=== PATIENT | male | born 1955 | race African-American/Black ===

== ENCOUNTER 2018-01-03 13:10 | Emergency (ER) | payer MEDICAID ==
[~2018-01-03] VITALS: Ht 185.4 cm; Wt 78.0 kg
[~2018-01-03 13:10] MED LIST: OLAN20TA29 PO
[2018-01-03 13:22] VITALS: BP 101/68
[2018-01-06] MEDS ORDERED: CODE473S5 PO (22:56)
[2018-01-06] MEDS ORDERED: ALPR2TAB2 PO (22:56)
== END 2018-01-03 19:50 | disposition left against medical advice (07) ==
LOC: ER 13:10
DX: Z53.21 Procedure and treatment not carried out due to patient leaving prior to being seen by health care provider (principal)
CPT/HCPCS: 93005

== ENCOUNTER 2018-07-16 01:30 | Inpatient (IN) | payer MEDICARE, MEDICAID ==
[~2018-07-16] VITALS: Ht 185.4 cm; Wt 63.5 kg
[~2018-07-16 01:30] MED LIST changes: +ALPR2TAB2 PO; +CODE473S5 PO
[2018-07-16] MEDS ORDERED: NITROGLYCERIN 0.4MG TABLET SL SL PRN (04:00)
[2018-07-16] MEDS ORDERED: LORAZEPAM 2MG/ML CPJ IV ONE (04:00)
[2018-07-16] MEDS ORDERED: ASPIRIN 81MG TABLET PO ONE (04:00)
[2018-07-16 04:29] LABS: BASOPHILS % 0.9 % (0.0-2.0); EOSINOPHILS % 5.7 % (0.0-5.0); HEMATOCRIT. 35.8 % (42.0-52.0); HEMOGLOBIN. 11.8 g/dL (14.0-18.0); LYMPHOCYTES % 33.9 % (20.0-50.0); MEAN CORPUSCULAR HEMOGLOBIN 29.2 pg (28.0-32.0); MEAN CORPUSCULAR VOLUME 88.5 fL (80.0-94.0); MEAN PLATELET VOLUME 8.3 fl (7.4-10.4); NEUTROPHILS % 51.5 % (40.0-76.0); PLATELET 203 x1000/uL (130-400); RED BLOOD CELL COUNT 4.05 mill/uL (4.7-6.1); RED CELL DISTRIBUTION WIDTH 14.4 % (11.6-14.6)
[2018-07-16 04:32] LABS: CHLORIDE 105 mEq/L (98-107)
[2018-07-16 04:44] LABS: D-DIMER < 0.19 mg/L FEU (<0.50); INR 1.1; PARTIAL THROMBOPLASTIN TIME 32.7 sec (23.4-31.0); PROTHROMBIN TIME 10.9 sec (9.6-11.0)
[2018-07-16] MEDS ORDERED: DOCUSATE SODIUM 100MG CAPSULE PO PRN (07:15)
[2018-07-16] MEDS ORDERED: IPRATROPIUM/ALBUTEROL 0.5-3(2.5)MG/3ML NEB INH PRN (07:15)
[2018-07-16] MEDS ORDERED: HYDROMORPHONE HCL/PF 2MG/ML CPJ IV PRN (07:15)
[2018-07-16] MEDS ORDERED: HYDRALAZINE 20MG/ML VIAL IV PRN (07:15)
[2018-07-16] MEDS ORDERED: DIPHENHYDRAMINE 50MG/ML VIAL IV PRN (07:15)
[2018-07-16] MEDS ORDERED: LORAZEPAM 2MG/ML CPJ IV PRN (07:15)
[2018-07-16] MEDS ORDERED: ONDANSETRON HCL 4MG/2ML INJ IV PRN (07:15)
[2018-07-16] MEDS ORDERED: NA PHOS,M-B/NA PHOS,DI-BA ENEMA 118ML PR PRN (07:15)
[2018-07-16] MEDS ORDERED: MAGNESIUM/ALUMINUM HYDROXIDE/SIMETHICONE 30ML UDC PO PRN (07:15)
[2018-07-16] MEDS ORDERED: CLONIDINE 0.1MG TABLET PO PRN (07:15)
[2018-07-16] MEDS ORDERED: GUAIFENESIN 200MG/10ML SUGAR FREE UDC PO PRN (07:15)
[2018-07-16] MEDS: HYDROCODONE/ACETAMINOPHEN 10/325MG TABLET PO PRN ×2 (08:00→23:06)
[2018-07-16 10:35] VITALS: BP 105/68
[2018-07-16] MEDS ORDERED: TYLENOL (10:49)
[2018-07-16] MEDS: ENOXAPARIN 40MG/0.4ML SYR SUBCUT SCH (11:50)
[2018-07-16] MEDS: ACETAMINOPHEN 325MG TABLET PO PRN (11:50)
[2018-07-16] MEDS: SODIUM CHLORIDE 0.9% INJ 3ML FLUSH IVF SCH ×2 (14:00→21:35)
[2018-07-16 16:00] VITALS: BP 99/57
[2018-07-16 17:35] LABS: CREATINE KINASE 246 IU/L (39-308)
[2018-07-16 17:36] LABS: CREATINE KINASE MB FRACTION 3.5 ng/mL (0.5-3.6)
[2018-07-16 20:00] VITALS: BP 113/63
[2018-07-16] MEDS ORDERED: LEVOFLOXACIN 500MG PREMIX 100 ML IV SCH (21:00)
[2018-07-16] MEDS: IPRATROPIUM/ALBUTEROL 0.5-3(2.5)MG/3ML NEB HHN SCH (21:28)
[2018-07-16] MEDS ORDERED: IPRATROPIUM/ALBUTEROL 0.5-3(2.5)MG/3ML NEB HHN PRN (23:50)
[2018-07-17] VITALS: BP 119/87
[2018-07-17 00:49] LABS: CREATINE KINASE 228 IU/L (39-308)
[2018-07-17 00:50] LABS: CREATINE KINASE MB FRACTION 3.5 ng/mL (0.5-3.6)
[2018-07-17 00:55] LABS: PROSTRATE SPECIFIC AG TOTAL 0.89 ng/mL (0.0-4.0)
[2018-07-17 04:00] VITALS: BP 111/70
[2018-07-17] MEDS: SODIUM CHLORIDE 0.9% INJ 3ML FLUSH IVF SCH ×2 (05:57→13:12)
[2018-07-17 06:26] LABS: EOSINOPHILS % 10.9 % (0.0-5.0); HEMATOCRIT. 36.6 % (42.0-52.0); HEMOGLOBIN. 11.9 g/dL (14.0-18.0); LYMPHOCYTES % 49.7 % (20.0-50.0); MEAN CORPUSCULAR HEMOGLOBIN 28.7 pg (28.0-32.0); MEAN CORPUSCULAR VOLUME 88.5 fL (80.0-94.0); MEAN PLATELET VOLUME 8.5 fl (7.4-10.4); MONOCYTES % 9.6 % (2.0-8.0); NEUTROPHILS % 28.8 % (40.0-76.0); PLATELET 195 x1000/uL (130-400); RED BLOOD CELL COUNT 4.13 mill/uL (4.7-6.1); RED CELL DISTRIBUTION WIDTH 14.3 % (11.6-14.6)
[2018-07-17] MEDS ORDERED: DIATR MEGLU/DIATRIZOATE SOLN 30ML PO SCH (06:30)
[2018-07-17 06:34] LABS: CHLORIDE 108 mEq/L (98-107)
[2018-07-17 06:47] LABS: HDL CHOLESTEROL 53 mg/dL (40-59); T4 FREE 0.98 ng/dL (0.76-1.46)
[2018-07-17 06:50] LABS: LDL CHOLESTEROL 67 mg/dL (5-100)
[2018-07-17 08:00] VITALS: BP 114/78
[2018-07-17] MEDS: IPRATROPIUM/ALBUTEROL 0.5-3(2.5)MG/3ML NEB HHN SCH ×2 (09:00→13:46)
[2018-07-17] MEDS: ENOXAPARIN 40MG/0.4ML SYR SUBCUT SCH (10:16)
[2018-07-17 12:00] VITALS: BP 111/70
[2018-07-17] MEDS: ACETAMINOPHEN 325MG TABLET PO PRN (13:18)
[2018-07-17 14:56] VITALS: BP 111/70
[2018-07-18] MEDS ORDERED: LEVOFLOXACIN 500MG TABLET PO SCH (21:00)
== END 2018-07-17 16:15 | disposition home or self-care (01) | DRG 203 ==
LOC: ER 01:30 → ENRESERV 09:46 → 8WST 10:51
PROVIDERS: ADMIT Internal Medicine; ATTEND Internal Medicine
DX: R07.89 Other chest pain (principal); J44.0 Chronic obstructive pulmonary disease with (acute) lower respiratory infection; E78.5 Hyperlipidemia, unspecified; F17.210 Nicotine dependence, cigarettes, uncomplicated; I10 Essential (primary) hypertension; J20.9 Acute bronchitis, unspecified; M19.90 Unspecified osteoarthritis, unspecified site; F14.90 Cocaine use, unspecified, uncomplicated; Z79.899 Other long term (current) drug therapy; Z88.0 Allergy status to penicillin; Z88.1 Allergy status to other antibiotic agents
CPT/HCPCS: 36415; 71045; 71250; 74176; 80061; 82378; 82550; 82553; 83880; 84153; 84439; 84443; 84484; 85379; 86301; 93005; 93970; 94640; 99285; J1650; J1956; J2060; J7620; Q9963; G0103

== ENCOUNTER 2018-12-13 10:08 | Inpatient (IN) | payer MEDICARE, MEDICAID ==
[~2018-12-13] VITALS: Ht 185.4 cm; Wt 65.8 kg
[~2018-12-13 10:08] MED LIST changes: +TYLENOL
[2018-12-13] MEDS: PIPERACILLIN/TAZ 3.375G PREMIX 50 ML IV ONE ×2 (10:35→10:56)
[2018-12-13] MEDS ORDERED: ACETAMINOPHEN 325MG TABLET PO STA (10:35)
[2018-12-13] MEDS ORDERED: SODIUM CHLORIDE 0.9% 1000ML BAG (SEPSIS BOLUS) IV ONE (10:45)
[2018-12-13] MEDS ORDERED: VANCOMYCIN 1 G PREMIX 200 ML IV ONE (10:45)
[2018-12-13] MEDS ORDERED: AZITHROMYCIN 500 MG in DEXT 5% WATER 250 ML IV ONE (10:45)
[2018-12-13 10:58] LABS: HEMATOCRIT. 39.5 % (42.0-52.0); MEAN CORPUSCULAR HEMOGLOBIN 28.4 pg (28.0-32.0); MEAN CORPUSCULAR VOLUME 86.2 fL (80.0-94.0); MEAN PLATELET VOLUME 8.3 fl (7.4-10.4); PLATELET 160 x1000/uL (130-400); RED BLOOD CELL COUNT 4.58 mill/uL (4.7-6.1); RED CELL DISTRIBUTION WIDTH 14.3 % (11.6-14.6)
[2018-12-13 11:01] LABS: CHLORIDE 99 mEq/L (98-107); INR 1.1; PROTHROMBIN TIME 11.3 sec (9.6-11.0)
[2018-12-13 11:17] LABS: PLATELET ESTIMATE NORMAL
[2018-12-13 11:59] LABS: CLARITY URINE CLEAR (CLEAR); COLOR URINE YELLOW (YELLOW); KETONES URINE NEGATIVE (NEGATIVE); LEUKOCYTE ESTERASE URINE NEGATIVE (NEGATIVE); NITRITE URINE NEGATIVE (NEGATIVE); OCCULT BLOOD URINE TRACE (NEGATIVE); PH URINE 5.5 (4.5-8.0); PROTEIN URINE TRACE (NEGATIVE); SPECIFIC GRAVITY URINE 1.011 (1.005-1.030)
[2018-12-13] MEDS ORDERED: IOHEXOL-350 100 ML BOTTLE ONE (14:47)
[2018-12-13 15:27] VITALS: BP 129/77
[2018-12-13 16:00] VITALS: BP 129/77
[2018-12-13] MEDS ORDERED: IPRATROPIUM/ALBUTEROL 0.5-3(2.5)MG/3ML NEB HHN PRN (17:45)
[2018-12-13] MEDS ORDERED: ONDANSETRON HCL 4MG/2ML INJ IV PRN (17:45)
[2018-12-13 18:00] VITALS: BP 118/66
[2018-12-13] MEDS: ACETAMINOPHEN 325MG TABLET PO PRN (18:15)
[2018-12-13 20:00] VITALS: BP 104/68
[2018-12-13] MEDS ORDERED: CEFTRIAXONE 1 G PREMIX 50 ML IV SCH (20:00)
[2018-12-13] MEDS ORDERED: LEVOFLOXACIN 500MG PREMIX 100 ML IV SCH (20:00)
[2018-12-13 22:00] VITALS: BP 105/65
[2018-12-14] VITALS (12 sets, daily range): BP systolic 100–137; BP diastolic 37–79
[2018-12-14] MEDS ORDERED: MIRT15TA MT (05:04)
[2018-12-14] MEDS: OMEPRAZOLE 20MG CAPSULE EXTENDED RELEASE PO SCH (08:15)
[2018-12-14] MEDS ORDERED: PNEUMOCOCCAL 23-VAL P-SAC VAC 0.5 ML IM ONE (09:00)
[2018-12-14] MEDS ORDERED: AZITHROMYCIN 500 MG in DEXT 5% WATER 250 ML IV SCH (09:00)
[2018-12-14] MEDS ORDERED: INFLUENZA VIRUS VACCINE(AFLURIA) 0.5ML SYR IM ONE (09:00)
[2018-12-14] MEDS: SODIUM CHLORIDE 0.9% 1,000 ML IV SCH ×2 (10:59→21:01)
[2018-12-14] MEDS: OLANZAPINE 10MG TABLET PO SCH (11:05)
[2018-12-14 11:29] LABS: HEMATOCRIT. 38.8 % (42.0-52.0); HEMOGLOBIN. 12.9 g/dL (14.0-18.0); MEAN CORPUSCULAR VOLUME 87.2 fL (80.0-94.0); MEAN PLATELET VOLUME 8.5 fl (7.4-10.4); PLATELET 151 x1000/uL (130-400); RED BLOOD CELL COUNT 4.45 mill/uL (4.7-6.1); RED CELL DISTRIBUTION WIDTH 14.7 % (11.6-14.6)
[2018-12-14 11:55] LABS: CHLORIDE 107 mEq/L (98-107)
[2018-12-14 13:20] LABS: PLATELET ESTIMATE NORMAL
[2018-12-14 13:58] LABS: *AMPHETAMINES SCREEN URINE NEGATIVE (NEGATIVE); *BARBITURATES SCREEN URINE NEGATIVE (NEGATIVE); *BENZODIAZEPINES SCREEN URINE NEGATIVE (NEGATIVE); *COCAINE SCREEN URINE PRESUMTIVE POSITIVE (NEGATIVE); METHADONE URINE SCREEN NEGATIVE (NEGATIVE); OPIATES URINE SCREEN NEGATIVE (NEGATIVE)
[2018-12-14 13:59] LABS: CANNABINOID URINE SCREEN NEGATIVE (NEGATIVE); PHENCYCLIDINE URINE SCREEN NEGATIVE (NEGATIVE)
[2018-12-14 14:07] LABS: SODIUM URINE RANDOM 139 mEq/L
[2018-12-14] MEDS: GUAIFENESIN/CODEINE 200-20MG/10ML UDC PO PRN (18:22)
[2018-12-14] MEDS: LEVOFLOXACIN 250MG PREMIX 50 ML IV SCH (21:00)
[2018-12-14] MEDS: MIRTAZAPINE 15MG TABLET PO SCH (21:00)
[2018-12-15] VITALS (10 sets, daily range): BP systolic 94–124; BP diastolic 54–70
[2018-12-15 07:14] LABS: BASOPHILS % 0.5 % (0.0-2.0); EOSINOPHILS % 1.3 % (0.0-5.0); HEMATOCRIT. 38.6 % (42.0-52.0); HEMOGLOBIN. 12.8 g/dL (14.0-18.0); LYMPHOCYTES % 28.3 % (20.0-50.0); MEAN CORPUSCULAR HEMOGLOBIN 28.8 pg (28.0-32.0); MEAN CORPUSCULAR VOLUME 86.8 fL (80.0-94.0); MEAN PLATELET VOLUME 8.9 fl (7.4-10.4); MONOCYTES % 12.4 % (2.0-8.0); NEUTROPHILS % 57.5 % (40.0-76.0); PLATELET 168 x1000/uL (130-400); RED BLOOD CELL COUNT 4.44 mill/uL (4.7-6.1); RED CELL DISTRIBUTION WIDTH 14.6 % (11.6-14.6)
[2018-12-15 07:52] LABS: CHLORIDE 106 mEq/L (98-107)
[2018-12-15 08:00] LABS: PHOSPHORUS 2.3 mg/dL (2.5-4.9)
[2018-12-15] MEDS: OMEPRAZOLE 20MG CAPSULE EXTENDED RELEASE PO SCH (08:05)
[2018-12-15] MEDS: OLANZAPINE 10MG TABLET PO SCH (08:05)
[2018-12-15 08:07] LABS: CREATINE KINASE 300 IU/L (39-308)
[2018-12-15] MEDS: SODIUM CHLORIDE 0.9% 1,000 ML IV SCH (08:11)
[2018-12-15] MEDS ORDERED: SODIUM PHOS,M-BASIC-D-BASIC 15 MM in DEXT 5% WATER 245 ML IV NR (12:00)
[2018-12-15] MEDS: MIRTAZAPINE 15MG TABLET PO SCH (21:33)
[2018-12-15] MEDS: LEVOFLOXACIN 250MG PREMIX 50 ML IV SCH (21:33)
[2018-12-16] VITALS (12 sets, daily range): BP systolic 93–119; BP diastolic 31–71
[2018-12-16] MEDS: SODIUM CHLORIDE 0.9% 1,000 ML IV SCH (01:38)
[2018-12-16] MEDS: OMEPRAZOLE 20MG CAPSULE EXTENDED RELEASE PO SCH (06:34)
[2018-12-16] MEDS: OLANZAPINE 10MG TABLET PO SCH (08:39)
[2018-12-16] MEDS: HYDROCODONE/ACETAMINOPHEN 5/325MG TABLET PO PRN ×2 (08:40→20:07)
[2018-12-16] MEDS: ENOXAPARIN 40MG/0.4ML SYR SUBCUT SCH (14:45)
[2018-12-16 15:04] LABS: BG BASE EXCESS 2.3 mmol/L (-2.0-2.0); BG CARBOXYHEMOGLOBIN 0.6 % (0.5-1.5); BG DEOXYHEMOGLOBIN 5.6 % (0.0-5.0); BG FRACTION INSPIRED OXYGEN 21; BG HCO3 ACT 26.4 mmol/L (22.0-26.0); BG METHEMOGLOBIN 0.2 % (0.0-1.5); BG OXYGEN SATURATION 94.4 % (92.0-98.5); BG OXYHEMOGLOBIN 93.6 % (94.0-97.0); BG PCO2 39.1 mmHg (35.0-45.0); BG PH 7.447 (7.350-7.450); BG SAMPLE SITE RIGHT BRACHIAL; BG TOTAL HEMOGLOBIN 13.8 g/dL (12.0-18.0); BG VENT MODE ROOM AIR
[2018-12-16] MEDS: MIRTAZAPINE 15MG TABLET PO SCH (20:06)
[2018-12-16] MEDS: LEVOFLOXACIN 250MG PREMIX 50 ML IV SCH (20:06)
[2018-12-17] VITALS (12 sets, daily range): BP systolic 103–144; BP diastolic 64–78
[2018-12-17 06:28] LABS: BASOPHILS % 0.4 % (0.0-2.0); CHLORIDE 104 mEq/L (98-107); EOSINOPHILS % 3.8 % (0.0-5.0); HEMATOCRIT. 38.6 % (42.0-52.0); HEMOGLOBIN. 12.8 g/dL (14.0-18.0); LYMPHOCYTES % 33.8 % (20.0-50.0); MEAN CORPUSCULAR HEMOGLOBIN 28.8 pg (28.0-32.0); MEAN CORPUSCULAR VOLUME 86.8 fL (80.0-94.0); MEAN PLATELET VOLUME 8.6 fl (7.4-10.4); MONOCYTES % 12.3 % (2.0-8.0); NEUTROPHILS % 49.7 % (40.0-76.0); PLATELET 188 x1000/uL (130-400); RED BLOOD CELL COUNT 4.44 mill/uL (4.7-6.1); RED CELL DISTRIBUTION WIDTH 14.5 % (11.6-14.6)
[2018-12-17] MEDS: HYDROCODONE/ACETAMINOPHEN 5/325MG TABLET PO PRN ×2 (06:31→21:18)
[2018-12-17 06:35] LABS: PHOSPHORUS 2.8 mg/dL (2.5-4.9)
[2018-12-17 08:10] LABS: HIV SCREEN 4G Non Reactive (Non Reactive)
[2018-12-17] MEDS: ENOXAPARIN 40MG/0.4ML SYR SUBCUT SCH (08:56)
[2018-12-17] MEDS: FAMOTIDINE 20MG TABLET PO SCH ×2 (08:56→21:18)
[2018-12-17] MEDS: OLANZAPINE 10MG TABLET PO SCH (08:56)
[2018-12-17] MEDS ORDERED: MAGNESIUM 2 G PREMIX 50 ML IV NR (13:30)
[2018-12-17] MEDS: MIRTAZAPINE 15MG TABLET PO SCH (21:18)
[2018-12-17] MEDS: LEVOFLOXACIN 250MG PREMIX 50 ML IV SCH (21:25)
[2018-12-18] VITALS (12 sets, daily range): BP systolic 99–135; BP diastolic 54–80
[2018-12-18 07:22] LABS: BASOPHILS % 0.5 % (0.0-2.0); EOSINOPHILS % 3.9 % (0.0-5.0); HEMATOCRIT. 39.4 % (42.0-52.0); HEMOGLOBIN. 12.9 g/dL (14.0-18.0); MEAN CORPUSCULAR HEMOGLOBIN 28.3 pg (28.0-32.0); MEAN CORPUSCULAR VOLUME 86.6 fL (80.0-94.0); MEAN PLATELET VOLUME 8.8 fl (7.4-10.4); MONOCYTES % 12.6 % (2.0-8.0); PLATELET 196 x1000/uL (130-400); RED BLOOD CELL COUNT 4.55 mill/uL (4.7-6.1); RED CELL DISTRIBUTION WIDTH 14.2 % (11.6-14.6)
[2018-12-18 07:33] LABS: CHLORIDE 104 mEq/L (98-107)
[2018-12-18 07:45] LABS: PHOSPHORUS 2.6 mg/dL (2.5-4.9)
[2018-12-18] MEDS: ENOXAPARIN 40MG/0.4ML SYR SUBCUT SCH (09:00)
[2018-12-18] MEDS: OLANZAPINE 10MG TABLET PO SCH (10:18)
[2018-12-18] MEDS: HYDROCODONE/ACETAMINOPHEN 5/325MG TABLET PO PRN ×2 (10:19→22:03)
[2018-12-18] MEDS: FAMOTIDINE 20MG TABLET PO SCH ×2 (10:19→21:25)
[2018-12-18] MEDS: MIRTAZAPINE 15MG TABLET PO SCH (21:25)
[2018-12-18] MEDS ORDERED: ZOLPIDEM TARTRATE 5MG TABLET PO PRN (21:45)
[2018-12-19] VITALS (16 sets, daily range): BP systolic 98–139; BP diastolic 28–96
[2018-12-19 07:27] LABS: BASOPHILS % 0.4 % (0.0-2.0); EOSINOPHILS % 3.3 % (0.0-5.0); HEMATOCRIT. 40.1 % (42.0-52.0); HEMOGLOBIN. 13.1 g/dL (14.0-18.0); LYMPHOCYTES % 18.7 % (20.0-50.0); MEAN CORPUSCULAR HEMOGLOBIN 28.6 pg (28.0-32.0); MEAN CORPUSCULAR VOLUME 87.4 fL (80.0-94.0); MEAN PLATELET VOLUME 8.8 fl (7.4-10.4); MONOCYTES % 9.3 % (2.0-8.0); NEUTROPHILS % 68.3 % (40.0-76.0); PLATELET 222 x1000/uL (130-400); RED BLOOD CELL COUNT 4.59 mill/uL (4.7-6.1); RED CELL DISTRIBUTION WIDTH 14.1 % (11.6-14.6)
[2018-12-19 07:42] LABS: CHLORIDE 102 mEq/L (98-107)
[2018-12-19 07:49] LABS: PHOSPHORUS 2.6 mg/dL (2.5-4.9)
[2018-12-19] MEDS: FAMOTIDINE 20MG TABLET PO SCH ×2 (09:14→21:49)
[2018-12-19] MEDS: HYDROCODONE/ACETAMINOPHEN 5/325MG TABLET PO PRN ×2 (09:14→17:03)
[2018-12-19] MEDS: OLANZAPINE 10MG TABLET PO SCH (09:14)
[2018-12-19] MEDS: ENOXAPARIN 40MG/0.4ML SYR SUBCUT SCH (09:15)
[2018-12-19] MEDS: GUAIFENESIN/CODEINE 200-20MG/10ML UDC PO PRN (20:10)
[2018-12-19] MEDS: ACETAMINOPHEN 325MG TABLET PO PRN (20:10)
[2018-12-19] MEDS: MIRTAZAPINE 15MG TABLET PO SCH (21:49)
[2018-12-20] VITALS (9 sets, daily range): BP systolic 90–132; BP diastolic 45–71
[2018-12-20] MEDS: HYDROCODONE/ACETAMINOPHEN 5/325MG TABLET PO PRN ×2 (07:01→13:04)
[2018-12-20] MEDS: ENOXAPARIN 40MG/0.4ML SYR SUBCUT SCH (09:00)
[2018-12-20] MEDS: OLANZAPINE 10MG TABLET PO SCH (09:16)
[2018-12-20] MEDS: FAMOTIDINE 20MG TABLET PO SCH (09:16)
[2018-12-20 13:45] LABS: HEMATOCRIT. 37.4 % (42.0-52.0); HEMOGLOBIN. 12.3 g/dL (14.0-18.0); MEAN CORPUSCULAR HEMOGLOBIN 28.5 pg (28.0-32.0); MEAN CORPUSCULAR VOLUME 86.7 fL (80.0-94.0); MEAN PLATELET VOLUME 8.6 fl (7.4-10.4); PLATELET 280 x1000/uL (130-400); RED BLOOD CELL COUNT 4.32 mill/uL (4.7-6.1); RED CELL DISTRIBUTION WIDTH 14.1 % (11.6-14.6)
[2018-12-20 14:08] LABS: PLATELET ESTIMATE NORMAL
[2018-12-20 14:11] LABS: CHLORIDE 103 mEq/L (98-107)
[2018-12-20 14:17] LABS: PHOSPHORUS 2.6 mg/dL (2.5-4.9)
== END 2018-12-20 19:00 | DRG 720 ==
LOC: ER 10:41 → 5EST 13:11 → EDBEDREQ 13:22 → ENRESERV 14:30
PROVIDERS: ADMIT Internal Medicine; ATTEND Internal Medicine
DX: A41.9 Sepsis, unspecified organism (principal); N17.9 Acute kidney failure, unspecified; E87.2 Acidosis; J18.1 Lobar pneumonia, unspecified organism; E83.39 Other disorders of phosphorus metabolism; E87.1 Hypo-osmolality and hyponatremia; N39.0 Urinary tract infection, site not specified; I10 Essential (primary) hypertension; J44.0 Chronic obstructive pulmonary disease with (acute) lower respiratory infection; E78.5 Hyperlipidemia, unspecified; E78.00 Pure hypercholesterolemia, unspecified; F14.10 Cocaine abuse, uncomplicated; F17.200 Nicotine dependence, unspecified, uncomplicated; G89.29 Other chronic pain; J44.1 Chronic obstructive pulmonary disease with (acute) exacerbation; M19.90 Unspecified osteoarthritis, unspecified site; R65.20 Severe sepsis without septic shock; R26.9 Unspecified abnormalities of gait and mobility; R53.81 Other malaise; E83.42 Hypomagnesemia; Z59.0 Homelessness; Z82.49 Family history of ischemic heart disease and other diseases of the circulatory system; Z88.0 Allergy status to penicillin; Z88.9 Allergy status to unspecified drugs, medicaments and biological substances
CPT/HCPCS: 36415; 36600; 71045; 71046; 71275; 80048; 80305; 81003; 82375; 82533; 82550; 82805; 83605; 83735; 83880; 83935; 84100; 84145; 84300; 84443; 84484; 87389; 87804; 90686; 90732; 93005; 97162; 97165; 99285; J0456; J1650; J1956; J2543; J3370; J3475; J3490; J7030; J7060; Q9967

== ENCOUNTER 2018-12-22 23:13 | Emergency (ER) | payer MEDICARE, OTHER ==
[~2018-12-22] VITALS: Ht 185.4 cm; Wt 65.0 kg
[~2018-12-22 23:13] MED LIST changes: +MIRT15TA MT
[2018-12-23 00:59] VITALS: BP 108/77
== END 2018-12-23 01:00 | disposition home or self-care (01) ==
LOC: ER 23:32
DX: R68.89 Other general symptoms and signs (principal); F17.200 Nicotine dependence, unspecified, uncomplicated; J45.909 Unspecified asthma, uncomplicated; J44.9 Chronic obstructive pulmonary disease, unspecified; Z98.890 Other specified postprocedural states; Z88.0 Allergy status to penicillin; Z79.899 Other long term (current) drug therapy; Z88.6 Allergy status to analgesic agent
CPT/HCPCS: 99281

== ENCOUNTER 2019-02-23 02:50 | Emergency (ER) | payer MEDICARE, OTHER ==
[~2019-02-23] VITALS: Ht 180.3 cm; Wt 81.0 kg
[2019-02-23 02:56] VITALS: BP 126/60
[2019-02-23] MEDS ORDERED: HYDROCODONE/ACETAMINOPHEN 5/325MG TABLET PO ONE (07:15)
== END 2019-02-23 10:05 | disposition home or self-care (01) ==
LOC: ER 02:50
DX: J44.9 Chronic obstructive pulmonary disease, unspecified (principal); J98.11 Atelectasis; F17.290 Nicotine dependence, other tobacco product, uncomplicated; I10 Essential (primary) hypertension; F20.9 Schizophrenia, unspecified; Z79.899 Other long term (current) drug therapy; Z88.0 Allergy status to penicillin; Z88.6 Allergy status to analgesic agent
CPT/HCPCS: 71045; 73130; 73560; 99283

== ENCOUNTER 2019-03-10 23:36 | Inpatient (IN) | payer MEDICARE, MEDICAID ==
[~2019-03-10] VITALS: Ht 185.4 cm; Wt 60.3 kg
[2019-03-11] MEDS ORDERED: METHYLPREDNISOLONE SOD SUCC 125 MG/2 ML VIAL IV STA (00:29)
[2019-03-11] MEDS ORDERED: MORPHINE SULFATE 4 MG/ML CPJ (NOT FOR IM USE) IV STA (00:29)
[2019-03-11] MEDS ORDERED: ONDANSETRON HCL 4MG/2ML INJ IV STA (00:29)
[2019-03-11] MEDS ORDERED: LEVOFLOXACIN 750MG PREMIX 150 ML IV ONE (00:30)
[2019-03-11] MEDS ORDERED: ASPIRIN 81MG TABLET PO ONE (00:30)
[2019-03-11] MEDS ORDERED: IPRATROPIUM/ALBUTEROL 0.5-3(2.5)MG/3ML NEB HHN ONE (00:30)
[2019-03-11 00:46] LABS: BASOPHILS % 0.5 % (0.0-2.0); EOSINOPHILS % 6.2 % (0.0-5.0); HEMATOCRIT. 37.8 % (42.0-52.0); HEMOGLOBIN. 12.4 g/dL (14.0-18.0); MEAN CORPUSCULAR HEMOGLOBIN 28.6 pg (28.0-32.0); MEAN CORPUSCULAR VOLUME 86.8 fL (80.0-94.0); MEAN PLATELET VOLUME 7.2 fl (7.4-10.4); NEUTROPHILS % 48.3 % (40.0-76.0); PLATELET 379 x1000/uL (130-400); RED BLOOD CELL COUNT 4.35 mill/uL (4.7-6.1); RED CELL DISTRIBUTION WIDTH 14.2 % (11.6-14.6)
[2019-03-11 00:55] LABS: CHLORIDE 104 mEq/L (98-107)
[2019-03-11 00:56] LABS: PARTIAL THROMBOPLASTIN TIME 35.2 sec (23.4-31.0); PROTHROMBIN TIME 10.2 sec (9.6-11.0)
[2019-03-11 00:59] LABS: ETHANOL BLOOD < 10 mg/dL
[2019-03-11 01:30] LABS: CLARITY URINE CLEAR (CLEAR); COLOR URINE YELLOW (YELLOW); KETONES URINE NEGATIVE (NEGATIVE); LEUKOCYTE ESTERASE URINE NEGATIVE (NEGATIVE); NITRITE URINE NEGATIVE (NEGATIVE); OCCULT BLOOD URINE NEGATIVE (NEGATIVE); PH URINE 6.5 (4.5-8.0); PROTEIN URINE NEGATIVE (NEGATIVE); SPECIFIC GRAVITY URINE 1.016 (1.005-1.030)
[2019-03-11 01:40] LABS: *AMPHETAMINES SCREEN URINE NEGATIVE (NEGATIVE); *BARBITURATES SCREEN URINE NEGATIVE (NEGATIVE); *BENZODIAZEPINES SCREEN URINE NEGATIVE (NEGATIVE); *COCAINE SCREEN URINE PRESUMTIVE POSITIVE (NEGATIVE)
[2019-03-11 01:41] LABS: CANNABINOID URINE SCREEN NEGATIVE (NEGATIVE); METHADONE URINE SCREEN NEGATIVE (NEGATIVE); PHENCYCLIDINE URINE SCREEN NEGATIVE (NEGATIVE)
[2019-03-11 01:42] LABS: OPIATES URINE SCREEN NEGATIVE (NEGATIVE)
[2019-03-11] MEDS ORDERED: MORPHINE SULFATE 2 MG/ML CPJ (NOT FOR IM USE) IV ONE (14:00)
[2019-03-11 18:30] VITALS: BP 100/63
[2019-03-11 18:45] VITALS: BP 100/63
[2019-03-11 21:16] VITALS: BP 96/70
[2019-03-11] MEDS ORDERED: ACETAMINOPHEN 650MG/20.3ML UDC PO PRN (21:45)
[2019-03-11] MEDS ORDERED: ONDANSETRON HCL 4MG/2ML INJ IV PRN (21:45)
[2019-03-11] MEDS: METHYLPREDNISOLONE SOD SUCC 40 MG/ML VIAL IV SCH (23:14)
[2019-03-12] VITALS: BP 102/64
[2019-03-12] MEDS: IPRATROPIUM/ALBUTEROL 0.5-3(2.5)MG/3ML NEB HHN SCH ×6 (00:50→20:53)
[2019-03-12] MEDS: LEVOFLOXACIN 500MG PREMIX 100 ML IV SCH (01:02)
[2019-03-12] MEDS: HYDROCODONE/ACETAMINOPHEN 5/325MG TABLET PO PRN ×3 (01:13→15:25)
[2019-03-12 04:00] VITALS: BP 106/71
[2019-03-12] MEDS: METHYLPREDNISOLONE SOD SUCC 40 MG/ML VIAL IV SCH ×3 (06:45→21:06)
[2019-03-12 06:48] LABS: BASOPHILS % 0.2 % (0.0-2.0); HEMATOCRIT. 35.1 % (42.0-52.0); HEMOGLOBIN. 11.9 g/dL (14.0-18.0); LYMPHOCYTES % 17.2 % (20.0-50.0); MEAN CORPUSCULAR HEMOGLOBIN 29.4 pg (28.0-32.0); MEAN CORPUSCULAR VOLUME 86.9 fL (80.0-94.0); MEAN PLATELET VOLUME 7.6 fl (7.4-10.4); MONOCYTES % 2.8 % (2.0-8.0); NEUTROPHILS % 79.8 % (40.0-76.0); PLATELET 356 x1000/uL (130-400); RED BLOOD CELL COUNT 4.04 mill/uL (4.7-6.1); RED CELL DISTRIBUTION WIDTH 14.2 % (11.6-14.6)
[2019-03-12 07:04] LABS: CHLORIDE 105 mEq/L (98-107)
[2019-03-12 07:13] LABS: CREATINE KINASE 62 IU/L (39-308)
[2019-03-12 07:14] LABS: CREATINE KINASE MB FRACTION 1.8 ng/mL (0.5-3.6)
[2019-03-12 08:00] VITALS: BP 110/73
[2019-03-12] MEDS: ASPIRIN 81MG EC TABLET PO SCH (09:16)
[2019-03-12] MEDS: ENOXAPARIN 40MG/0.4ML SYR SUBCUT SCH (09:17)
[2019-03-12 12:00] VITALS: BP 103/64
[2019-03-12 16:00] VITALS: BP 107/70
[2019-03-12 20:00] VITALS: BP 105/67
[2019-03-12] MEDS: MORPHINE SULFATE 2 MG/ML CPJ (NOT FOR IM USE) IV PRN (20:15)
[2019-03-13] VITALS: BP 98/66
[2019-03-13] MEDS: LEVOFLOXACIN 500MG PREMIX 100 ML IV SCH (01:21)
[2019-03-13 04:00] VITALS: BP 105/72
[2019-03-13] MEDS: IPRATROPIUM/ALBUTEROL 0.5-3(2.5)MG/3ML NEB HHN SCH ×4 (04:00→12:09)
[2019-03-13] MEDS: METHYLPREDNISOLONE SOD SUCC 40 MG/ML VIAL IV SCH ×2 (05:15→13:19)
[2019-03-13] MEDS: MORPHINE SULFATE 2 MG/ML CPJ (NOT FOR IM USE) IV PRN (05:31)
[2019-03-13 08:00] VITALS: BP 106/70
[2019-03-13] MEDS: ASPIRIN 81MG EC TABLET PO SCH (09:52)
[2019-03-13] MEDS: ENOXAPARIN 40MG/0.4ML SYR SUBCUT SCH (09:52)
[2019-03-13] MEDS: HYDROCODONE/ACETAMINOPHEN 5/325MG TABLET PO PRN (13:30)
[2019-03-13 15:02] VITALS: BP 110/65
== END 2019-03-13 15:26 | disposition home health service (06) | DRG 816 ==
LOC: ER 23:36 → 7WST 03-11 02:50 → EDBEDREQ 03-11 02:58 → EDBEDREQTM 03-11 02:58 → ENRESERV 03-11 16:24
PROVIDERS: ADMIT Internal Medicine; ATTEND Internal Medicine
DX: T40.5X1A Poisoning by cocaine, accidental (unintentional), initial encounter (principal); K85.90 Acute pancreatitis without necrosis or infection, unspecified; J44.1 Chronic obstructive pulmonary disease with (acute) exacerbation; F20.9 Schizophrenia, unspecified; M94.0 Chondrocostal junction syndrome [Tietze]; D64.9 Anemia, unspecified; F14.10 Cocaine abuse, uncomplicated; F17.210 Nicotine dependence, cigarettes, uncomplicated; F41.9 Anxiety disorder, unspecified; F31.9 Bipolar disorder, unspecified; I10 Essential (primary) hypertension; R07.81 Pleurodynia; Z59.0 Homelessness; Z87.01 Personal history of pneumonia (recurrent); Z88.0 Allergy status to penicillin; Z88.6 Allergy status to analgesic agent; Z71.51 Drug abuse counseling and surveillance of drug abuser; V19.9XXA Pedal cyclist (driver) (passenger) injured in unspecified traffic accident, initial encounter; Y93.55 Activity, bike riding; Y92.89 Other specified places as the place of occurrence of the external cause; Y99.8 Other external cause status
CPT/HCPCS: 36415; 71045; 76700; 80048; 80053; 80305; 80320; 81003; 82550; 82553; 83605; 83880; 84484; 85025; 93005; 93306; 94640; 97162; 99285; J1650; J1956; J2270; J2405; J2920; J2930; G0480

== ENCOUNTER 2021-01-12 00:55 | Emergency (ER) | payer MEDICARE, OTHER ==
[~2021-01-12] VITALS: Ht 185.4 cm; Wt 75.0 kg
[~2021-01-12 00:55] MED LIST changes: +MIRT-118 MT; -MIRT15TA MT; -TYLENOL
[2021-01-12] MEDS ORDERED: ONDANSETRON HCL 4MG/2ML INJ IV STA (01:37)
[2021-01-12] MEDS ORDERED: MORPHINE SULFATE 4 MG/ML CPJ (NOT FOR IM USE) IV STA (01:37)
[2021-01-12 01:44] LABS: BASOPHILS % 0.4 % (0.0-2.0); EOSINOPHILS % 1.5 % (0.0-5.0); HEMATOCRIT. 37.9 % (42.0-52.0); HEMOGLOBIN. 12.3 g/dL (14.0-18.0); LYMPHOCYTES % 11.5 % (20.0-50.0); MEAN CORPUSCULAR HEMOGLOBIN 28.1 pg (28.0-32.0); MEAN CORPUSCULAR VOLUME 86.2 fL (80.0-94.0); MEAN PLATELET VOLUME 7.9 fl (7.4-10.4); MONOCYTES % 6.8 % (2.0-8.0); NEUTROPHILS % 79.8 % (40.0-76.0); PLATELET 297 x1000/uL (130-400); RED BLOOD CELL COUNT 4.39 mill/uL (4.7-6.1); RED CELL DISTRIBUTION WIDTH 14.7 % (11.6-14.6)
[2021-01-12] MEDS ORDERED: ASPIRIN 81MG TABLET PO ONE (01:45)
[2021-01-12] MEDS ORDERED: NITROGLYCERIN OINT 1GM/INCH UDPKT TD ONE (01:45)
[2021-01-12 01:49] LABS: CHLORIDE 100 mEq/L (98-107)
[2021-01-12 01:54] LABS: ETHANOL BLOOD < 10 mg/dL
[2021-01-12 02:11] LABS: CLARITY URINE CLEAR (CLEAR); COLOR URINE YELLOW (YELLOW); KETONES URINE TRACE (NEGATIVE); LEUKOCYTE ESTERASE URINE NEGATIVE (NEGATIVE); NITRITE URINE NEGATIVE (NEGATIVE); OCCULT BLOOD URINE NEGATIVE (NEGATIVE); PH URINE 5.5 (4.5-8.0); PROTEIN URINE TRACE (NEGATIVE); SPECIFIC GRAVITY URINE 1.029 (1.005-1.030)
[2021-01-12 02:21] LABS: *AMPHETAMINES SCREEN URINE NEGATIVE (NEGATIVE); *BARBITURATES SCREEN URINE NEGATIVE (NEGATIVE); *BENZODIAZEPINES SCREEN URINE NEGATIVE (NEGATIVE); *COCAINE SCREEN URINE PRESUMTIVE POSITIVE (NEGATIVE); CANNABINOID URINE SCREEN NEGATIVE (NEGATIVE); METHADONE URINE SCREEN NEGATIVE (NEGATIVE); OPIATES URINE SCREEN NEGATIVE (NEGATIVE); PHENCYCLIDINE URINE SCREEN NEGATIVE (NEGATIVE)
[2021-01-12 03:00] VITALS: BP 122/76
== END 2021-01-12 02:57 | disposition short-term general hospital (02) ==
LOC: ER 00:55 → CANBEDREQ 07:46
DX: R07.89 Other chest pain (principal); J44.9 Chronic obstructive pulmonary disease, unspecified; I10 Essential (primary) hypertension; F14.10 Cocaine abuse, uncomplicated; I25.2 Old myocardial infarction; F20.9 Schizophrenia, unspecified; Z79.899 Other long term (current) drug therapy; Z88.0 Allergy status to penicillin
CPT/HCPCS: 36415; 71045; 80053; 80305; 80320; 81003; 83690; 83880; 84484; 85025; 93005; 96374; 96375; 99285; J2270; J2405; G0480